=== PATIENT | male | born 1960 | race Caucasian/White ===

== ENCOUNTER → 2017-10-14 | Outpatient (CLI) | payer MEDICARE ==
[~2017-10-14] MED LIST: ALBUTEROL0.83 MG/ML IH; AMOXICILLIN 8751 TAB PO; BACTRIM DS 8001 TAB PO; CEPHALEXIN500 M1 PO; GENTAMICIN OPTHA3 GM OU; HCTZ12.5TAB PO; LORTAB 5/500 501 TAB PO; NORCO 325 MG-51 TAB PO; NORVASC 10MG10 MG PO; NORVASC 5MG5 MG/TAB PO; PREDNISONE20 MG PO; PROAIR HFA0.09 MG/AC IH; SIMVASTATIN20 MG PO; VICODIN 5/5001 UDTAB PO; WATER PILL; ZITHROMAX TRI-500 MG PO
== END ==
LOC: COL.VAS 09:54
DX: I51.9 Heart disease, unspecified (principal)

== ENCOUNTER 2019-10-28 20:49 | Emergency (ER) | payer MEDICARE, MEDICAID, OTHER ==
[~2019-10-28] VITALS: Ht 182.9 cm; Wt 170.5 kg
[2019-10-28 20:49] VITALS: TEMP 98.5
[2019-10-28 21:17] LABS: MEAN CELL VOLUME 100 fl (80.0-100.0); MEAN CORPUSCULAR HGB CONC 31 g/dl (33.0-37.0); MEAN PLATELET VOLUME 9.5 fl (7.4-10.4); PLATELET COUNT 298 K/mm3 (130-400); RED BLOOD COUNT 6.03 M/mm3 (4.20-5.60); REDCELL DISTRIBUTION WIDTH-CV 13.3 % (11.5-14.5)
[2019-10-28 21:21] LABS: HEMATOCRIT 60.4 % (42.0-52.0); HEMOGLOBIN 18.9 g/dl (13.5-18.0); MEAN CORPUSCULAR HEMOGLOBIN 31 pg (27.0-31.0)
[2019-10-28 21:24] LABS: ALKALINE PHOSPHATASE 132 U/L (50-136); ANION GAP 15 mmol/L (7-16); AST,SGOT 79 U/L (15-37); BLOOD UREA NITROGEN 17 mg/dL (9-20); CALCIUM 8.9 mg/dL (8.4-10.2); CARBON DIOXIDE 26 mmol/L (22-30); CHLORIDE 94 mmol/L (98-107); CREATININE, serum 0.95 (0.66-1.25); GLUCOSE 259 mg/dL (74-106); MAGNESIUM 2.2 mg/dL (1.6-2.3); PHOSPHOROUS 5.2 mg/dL (2.5-4.5); POTASSIUM 3.6 mmol/L (3.4-5.0); SODIUM 135 mmol/L (137-145); TOTAL PROTEIN 7.7 gm/dL (6.4-8.2)
[2019-10-28 22:38] LABS: BAND 2 % (0-10); LYMPHOCYTE 42 % (20.0-51.0); NEUTROPHILS 52 % (42.0-75.2); PLATELET ESTIMATE NORMAL (NORMAL)
[2019-10-29 00:33] VITALS: BP 103/70; PULSE 89
[2019-10-29 07:19] LABS: ARTERIAL BLD GAS O2 SATURATION 87.9 % (92-100); ARTERIAL BLD GAS TCO2 CT 25.1; ARTERIAL BLOOD GAS BASE EXCESS -9.7 (-2-2); ARTERIAL BLOOD GAS HCO3 22.7 meq/L (22-26); ARTERIAL BLOOD GAS PO2 65.5 mmHg (80-100)
[2019-10-29 07:21] LABS: ARTERIAL BLOOD GAS PCO2 77.2 mmHg (35-45); ARTERIAL BLOOD GAS pH 7.09 (7.35-7.45)
== END 2019-10-29 00:30 | disposition short-term general hospital (02) ==
LOC: COL.ER 20:49
PROVIDERS: Emergency Medicine
DX: I46.9 Cardiac arrest, cause unspecified (principal); Z79.52 Long term (current) use of systemic steroids
CPT/HCPCS: J0282; J0330; J2250; J2543; J3010; J3475; J7060